=== PATIENT | female | born 1985 | race African-American/Black ===

== ENCOUNTER 2017-08-15 08:29 | Emergency (ER) | payer OTHER | END 2017-08-15 12:20 | disposition home or self-care (01) | LOC: FTE 08:29 | DX: M79.672 Pain in left foot (principal) | CPT/HCPCS: 73630; 73630-LT; 99283-25 ==

== ENCOUNTER 2017-09-20 08:27 | Emergency (ER) | payer OTHER ==
[2017-09-20] MEDS: CEFTRIAXONE 250 MG INJ IM (09:27)
[2017-09-20] MEDS: AZITHROMYCIN 250 MG TAB PO (09:28)
[2017-09-20 09:29] LABS: ADD UMIC YES; UR ASCORBIC ACID 40 mg/dL (NEGATIVE); UR BILIRUBIN (Dip) NEGATIVE (NEGATIVE); UR BLOOD (Dip) 2+ mg/dL (NEGATIVE); UR CLARITY CLEAR (CLEAR); UR COLOR YELLOW (YELLOW); UR GLUCOSE (Dip) NEGATIVE (NEGATIVE); UR KETONES (Dip) NEGATIVE (NEGATIVE); UR LEUKOCYTE ESTERASE (Dip) NEGATIVE Leu/ul (NEGATIVE); UR NITRITE (Dip) NEGATIVE (NEGATIVE); UR RBC 3 /HPF (0-5); UR SPECIFIC GRAVITY (Dip) 1.014 (1.003-1.030); UR SQUAMOUS EPITHELIAL CELL FEW /HPF (FEW); UR TOTAL PROTEIN (Dip) NEGATIVE (NEGATIVE); UR UROBILINOGEN (Dip) NEGATIVE (NEGATIVE); UR WBC 1 /HPF (0-5)
== END 2017-09-20 09:58 | disposition home or self-care (01) ==
LOC: FTE 08:27
DX: N89.8 Other specified noninflammatory disorders of vagina (principal)
CPT/HCPCS: 81001; 87591; 96372; 99284-25

== ENCOUNTER 2018-05-19 12:45 | Emergency (ER) | payer OTHER ==
[2018-05-19] MEDS: MUPIROCIN 2% 15 GM CR TOP (13:12)
[2018-05-19] MEDS: MUPIROCIN 2% 22 GM OINT TOP (14:03)
== END 2018-05-19 14:03 | disposition home or self-care (01) ==
LOC: FTE 12:45
DX: H60.12 Cellulitis of left external ear (principal)
CPT/HCPCS: 99282; Z7502

== ENCOUNTER 2018-06-11 19:25 | Emergency (ER) | payer OTHER | END 2018-06-11 21:55 | disposition home or self-care (01) | LOC: FTE 19:25 | DX: Z71.1 Person with feared health complaint in whom no diagnosis is made (principal) | CPT/HCPCS: 99282; Z7502 ==

== ENCOUNTER 2018-10-03 08:28 | Emergency (ER) | payer OTHER | END 2018-10-03 10:35 | disposition home or self-care (01) | LOC: FTE 08:28 | DX: N76.0 Acute vaginitis (principal) | CPT/HCPCS: 99281; Z7502 ==